=== PATIENT | male | born 1955 | race Caucasian/White ===

== ENCOUNTER → 2020-05-06 | Outpatient (CLI) | payer OTHER | LOC: KOH-I 12:49 | DX: R53.82 Chronic fatigue, unspecified (principal) | CPT/HCPCS: 71046 ==

== ENCOUNTER → 2020-05-26 | Outpatient (CLI) | payer OTHER | LOC: HEART 5 15:25 | DX: R01.1 Cardiac murmur, unspecified (principal); I08.2 Rheumatic disorders of both aortic and tricuspid valves; I27.20 Pulmonary hypertension, unspecified; R93.1 Abnormal findings on diagnostic imaging of heart and coronary circulation | CPT/HCPCS: 93306 ==

== ENCOUNTER → 2020-06-24 | Outpatient (CLI) | payer OTHER | LOC: KOH-I 14:51 | DX: M79.605 Pain in left leg (principal) | CPT/HCPCS: 93971 ==

== ENCOUNTER 2021-10-26 17:07 | Emergency (ER) | payer MEDICARE | END 2021-10-26 21:13 | disposition home or self-care (01) | LOC: ER1 17:07 | DX: U07.1 COVID-19 (principal); F17.290 Nicotine dependence, other tobacco product, uncomplicated; Z88.6 Allergy status to analgesic agent; Z88.5 Allergy status to narcotic agent | CPT/HCPCS: 99283; M0222 ==

== ENCOUNTER 2021-11-14 00:37 | Inpatient (IN) | payer MEDICARE ==
[~2021-11-14] VITALS: Ht 177.8 cm
[2021-11-14 01:12] LABS: HEMOGLOBIN 11.1 gm/dl (14.0-17.5); RED BLOOD COUNT 3.8 M/UL (4.20-5.50); WHITE BLOOD COUNT 10.5 K/UL (4.5-11.0)
[2021-11-14 01:41] LABS: BUN/CREATININE RATIO 20 (0-10)
[2021-11-14] MEDS ORDERED: FLOMAX 0.4 MG0.4 MG PO (10:47)
[2021-11-14] MEDS ORDERED: LEVOTHYROXINE50 MCG PO (10:48)
[2021-11-14] MEDS ORDERED: AVODART0.5 MG PO (10:48)
[2021-11-15 06:43] LABS: RED BLOOD COUNT 3.46 M/UL (4.20-5.50); WHITE BLOOD COUNT 10.8 K/UL (4.5-11.0)
[2021-11-15 07:16] LABS: BUN/CREATININE RATIO 28 (0-10)
[2021-11-16 06:52] LABS: HEMOGLOBIN 10.4 gm/dl (14.0-17.5); RED BLOOD COUNT 3.59 M/UL (4.20-5.50); WHITE BLOOD COUNT 10.9 K/UL (4.5-11.0)
[2021-11-16 08:44] LABS: BUN/CREATININE RATIO 23 (0-10)
--- NOTE | 2021-11-16 14:43 | NUR ---
EDUCATED THE PT THIS MORNING ON THE USE OF THE INCENTIVE SPIROMETER TO HELP WITH OXYGEN PERFUSION. EDUCATED THE PT ON THE USE AND REACTIONS OF REMDESIVIR. ADVISED PT THAT CRUSHER FEEDER SIDE EFFECTS ARE UNKNOWN WITH THIS MEDICATION. PT ELECTED FOR TREATMENT WITH MEDICATION. MEDICATION WAS GIVEN.
[2021-11-17 06:40] LABS: HEMOGLOBIN 11.6 gm/dl (14.0-17.5); WHITE BLOOD COUNT 11.4 K/UL (4.5-11.0)
[2021-11-17 06:49] LABS: RED BLOOD COUNT 4.02 M/UL (4.20-5.50)
[2021-11-17 07:06] LABS: BUN/CREATININE RATIO 25 (0-10)
--- NOTE | 2021-11-17 10:27 | NUR ---
PATIENT O2 SATURATONS 87% ON ROOM AIR.
[2021-11-18 07:02] LABS: HEMOGLOBIN 11.6 gm/dl (14.0-17.5); RED BLOOD COUNT 4.03 M/UL (4.20-5.50)
[2021-11-18 07:19] LABS: BUN/CREATININE RATIO 25 (0-10)
[2021-11-18] MEDS ORDERED: PROTONIX 40 MG40 M1 PO (08:47)
[2021-11-18] MEDS ORDERED: PROAIR HFA8.5 GM INH (08:47)
[2021-11-18] MEDS ORDERED: ZOFRAN ODT 4 MG4 MG PO (08:51)
[2021-11-18] MEDS ORDERED: ELIQUIS 5 MG TAB5 MG PO ×2 (08:52→08:55)
[2021-11-18] MEDS ORDERED: ELIQUIS5 MG PO (08:52)
== END 2021-11-18 12:09 | disposition home or self-care (01) | DRG 177 ==
LOC: ER1 00:37 → CDU 05:10 → M/S 05:10 → CDU 08:02 → M/S 14:45
PROVIDERS: Family Medicine; Internal Medicine; ADMIT Internal Medicine
PROC: 8E0ZXY6 Isolation (ICD-10-PCS; principal; 2021-11-14)
PROC: 3E0333Z Introduction of Anti-inflammatory into Peripheral Vein, Percutaneous Approach (ICD-10-PCS; 2021-11-14)
PROC: XW033E5 Introduction of Remdesivir Anti-infective into Peripheral Vein, Percutaneous Approach, New Technology Group 5 (ICD-10-PCS; 2021-11-14)
PROC: XW033H5 Introduction of Tocilizumab into Peripheral Vein, Percutaneous Approach, New Technology Group 5 (ICD-10-PCS; 2021-11-14)
DX: U07.1 COVID-19 (principal); I26.99 Other pulmonary embolism without acute cor pulmonale; J12.82 Pneumonia due to coronavirus disease 2019; J96.01 Acute respiratory failure with hypoxia; J15.9 Unspecified bacterial pneumonia; E87.2 Acidosis; N40.0 Benign prostatic hyperplasia without lower urinary tract symptoms; F17.210 Nicotine dependence, cigarettes, uncomplicated; E03.9 Hypothyroidism, unspecified; U07.0 Vaping-related disorder; E87.6 Hypokalemia; I25.10 Atherosclerotic heart disease of native coronary artery without angina pectoris; M54.50 Low back pain, unspecified; G89.29 Other chronic pain; Z79.899 Other long term (current) drug therapy; Z98.890 Other specified postprocedural states; Z82.49 Family history of ischemic heart disease and other diseases of the circulatory system; Z88.5 Allergy status to narcotic agent; Z28.310 Unvaccinated for COVID-19; Z88.8 Allergy status to other drugs, medicaments and biological substances; Z79.01 Long term (current) use of anticoagulants; Z23 Encounter for immunization
CPT/HCPCS: 36600; 71045; 72131; 74018; 80048; 80053; 81001; 82550; 82553; 82803; 83605; 83735; 83880; 84484; 85025; 85027; 85610; 85652; 86140; 87040; 93005; 94640; 94664; 94760; 96365; 96372; 96375; 99285; C9113; J0248; J0456; J0696; J1100; J1650; J2405; J2543; J7030; Q9967; U0002

== ENCOUNTER → 2021-12-08 | Outpatient (CLI) | payer MEDICARE ==
[~2021-12-08] MED LIST: AVODART0.5 MG PO; ELIQUIS 5 MG TAB5 MG PO; ELIQUIS5 MG PO; FLOMAX 0.4 MG0.4 MG PO; LEVOTHYROXINE50 MCG PO; PROAIR HFA8.5 GM INH; PROTONIX 40 MG40 M1 PO; ZOFRAN ODT 4 MG4 MG PO
== END ==
LOC: EXRD 09:25
DX: R06.02 Shortness of breath (principal)
CPT/HCPCS: 71046

== ENCOUNTER → 2021-12-30 | Outpatient (CLI) | payer MEDICARE, OTHER ==
[2021-12-30 15:19] LABS: BUN/CREATININE RATIO 23 (0-10)
== END ==
LOC: MRI 13:46
PROVIDERS: Family Medicine
DX: M51.16 Intervertebral disc disorders with radiculopathy, lumbar region (principal); M48.061 Spinal stenosis, lumbar region without neurogenic claudication
CPT/HCPCS: 36415; 72158; 80048; A9577